=== PATIENT | female | born 1995 | race Two or more races ===

== ENCOUNTER 2016-10-12 16:28 | Emergency (ER) | payer OTHER ==
[2016-10-12 17:00] VITALS: BP 113/71
--- NOTE | 2016-10-12 17:31 | UC ---
Psychiatric Complaint HPI - HPI Summary HPI Summary: complaint of anxiety dx with OCD 2-3 years ago whenever her stress level increases she gets extremely worried and paranoid about her health recently saw a blood drop on the toilet seat and she is worried that someone in her house is sick concerned that she might have sat on a dirty toilet seat worried that she will not pass her exams having difficulty with concentration currently not taking any medications for her symptoms-never has been on any medications went to [facility] today but they wouldn't give her any medications she is requesting xanax able to sleep denies suicidal /ideation at this time - History Of Current Complaint Chief Complaint: [facility] Stated Complaint: ANXIETY Time Seen by Provider: 10/12/16 17:18 Hx Obtained From: Patient Hx Last Menstrual Period: 09/26/16 - Allergies/Home Medications Allergies/Adverse Reactions: Allergies Allergy/AdvReac Type Severity Reaction Status Date / Time Penicillins Allergy Unknown UNK Verified 10/12/16 16:52 Home Medications: Home Medications Ethinylestradiol Cyproterone Acetate 1 tab 10/12/16 [History] PMH/Surg Hx/FS Hx/Imm Hx Previously Healthy: Yes - Surgical History Surgical History: None - Family History Known Family History: Negative: Cardiac Disease, Hypertension, Diabetes - Social History Occupation: Student Alcohol Use: None Substance Use Type: None Smoking Status (MU): Never Smoked Tobacco Review of Systems Constitutional: Negative Skin: Negative Eyes: Negative ENT: Negative Respiratory: Negative Cardiovascular: Negative Gastrointestinal: Negative Motor: Negative Musculoskeletal: Negative Neurological: Negative Psychological: Anxious All Other Systems Reviewed And Are Negative: Yes Physical Exam Triage Information Reviewed: Yes Appearance: No Pain Distress, Well-Nourished Vital Signs: Initial Vital Signs Temp 98.2 F 10/12/16 16:54 Pulse 70 10/12/16 16:54 Resp 16 10/12/16 16:54 BP 113/71 10/12/16 16:54 Pulse Ox 100 10/12/16 16:54 Vital Signs Reviewed: Yes Eyes: Positive: Conjunctiva Clear ENT: Positive: Pharynx normal, TMs normal Neck: Positive: No Lymphadenopathy Respiratory: Positive: Lungs clear, Normal breath sounds, No respiratory distress, No accessory muscle use Cardiovascular: Positive: RRR, No Murmur, Pulses Normal Abdomen Description: Positive: Nontender, Soft Bowel Sounds: Positive: Present Musculoskeletal: Positive: No Edema Neurological Exam: Normal Psychological Exam: Other - anxious- tearful-good eye contact, good hygeine, Skin Exam: Normal Psych Complaint Course/Dx - Course Course Of Treatment: exam completed. will refer to Nancy Moreno dope dry house operator for further evaluation and treatment. patient has no red flags to warrant immediate psychiatric evqaluation - denies suicidal/homicidal ideation - Differential Dx/Diagnosis Differential Diagnosis/HQI/PQRI: Anxiety Provider Diagnoses: anxiety Discharge - Discharge Plan Condition: Stable Disposition: HOME Prescriptions: hydrOXYzine HCL TAB* [Atarax 25 MG TAB*] 25 mg PO TID PRN #12 tab PRN Reason: Anxiety Patient Education Materials: Anxiety (ED) Referrals: [facility]AL[facility] [Primary Care Provider] - Nancy Moreno TECHNICAL SUPPORT SPECIALIST [Nurse Practitioner] - Additional Instructions: start hydroxyzine as directed please call Mil Moreno NP tomorrow to have tour anxiety /OCD evaluated and treated If your symptoms worsen please call 911 or go to the emergency room.
== END 2016-10-12 18:15 | disposition home or self-care (01) ==
LOC: UCEAST 16:28
DX: F41.9 Anxiety disorder, unspecified (principal); Z88.0 Allergy status to penicillin
CPT/HCPCS: 99212; G0463